=== PATIENT | female | born 1945 ===

== ENCOUNTER 2022-11-10 05:45 | Day surgery (SDC) | payer OTHER ==
[~2022-11-10] VITALS: Ht 170.2 cm; Wt 75.7 kg
[~2022-11-10 05:45] MED LIST: AVAPRO150 MG PO; NORVASC2.5 MG PO; PREMPRO 0.625-1 EAC1 PO
[2022-11-10] MEDS ORDERED: TRAM1TAB98 PO (09:27)
[2022-11-10] MEDS ORDERED: COLACE100 MG PO (09:27)
== END 2022-11-10 11:20 | disposition home or self-care (01) ==
LOC: CIR.AMB 05:45
PROVIDERS: ATTEND Surgery
DX: D12.8 Benign neoplasm of rectum (principal); K62.82 Dysplasia of anus; K62.89 Other specified diseases of anus and rectum; Z20.822 Contact with and (suspected) exposure to COVID-19